=== PATIENT | female | born 1990 | race Hispanic/Latino ===

== ENCOUNTER → 2023-03-31 | Outpatient (CLI) | payer BC, SELFPAY ==
[2023-03-31 16:31] LABS: Absolute Neutrophil Count 4.2 X10^3/uL (2.0-7.7); Basophil# 0.03 X10^3/uL; Basophil% 0.4 % (0-1); Eosinophil# 0.01 X10^3/uL; Eosinophils% 0.1 % (0-5); Hematocrit 39.7 % (37-47); Hemoglobin 12.9 g/dL (12.0-15.0); Lymphocyte % 37.6 % (19-41); Mean Corp Hgb Conc 32.5 g/dL (32-36); Mean Corpuscular Hgb 29.2 pg (27.0-32.0); Mean Corpuscular Volume 89.8 fL (81-99); Mean Platelet Vol. 10.3 fl (6.2-12.0); Monocyte# 0.55 X10^3/uL; Monocyte% 7.1 % (0-10); NRBC Flagged by Analyzer 0 % (0-5); Neutrophil # 4.21 X10^3/uL (2.7-7.7); Neutrophil % 54.5 % (47-70); Platelet Count 372 K/mm3 (150-450); RBC Distribution Width CV 12.6 % (11.6-14.6); RBC Distribution Width SD 41.6 fl (35.1-43.9); Red Blood Count 4.42 M/mm3 (4.2-5.4); White Blood Count 7.7 K/mm3 (4.4-11.0)
[2023-03-31 17:03] LABS: ALB/GLOB Ratio 1.2 RATIO (0.9-2.4); AST(SGOT) 27 U/L (15-37); Alanine Aminotransfer ALT/SGPT 80 U/L (13-56); Albumin, Serum 4.3 g/dL (3.2-5.0); Alkaline Phosphatase 127 U/L (45-117); Anion Gap 2 (5-15); BUN 13 mg/dL (7-18); BUN/Creat Ratio 17.4 RATIO (10-20); Calcium,Total 9.4 mg/dL (8.5-10.1); Chloride 104 mmol/L (98-107); Cholesterol 223 mg/dL (200); Creatinine, Serum 0.75 mg/dL (0.55-1.02); EST Glomerular Filtration Rate 96 mL/min (>60); Est Glom Filt Rate - Afr Amer 116 mL/min (>60); Globulin 3.7 g/dL (2.2-4.2); Glucose 103 mg/dL (74-106); High Density Lipoprotein 74 mg/dL; Potassium 4.2 mmol/L (3.5-5.1); Sodium Level 137 mmol/L (136-145); Triglycerides 127 mg/dL; Very Low Density Lipoprotein 25 mg/dL (5-40)
== END | disposition home or self-care (01) ==
LOC: BIMLAB 14:36
PROVIDERS: PCP Internal Medicine; Visit Provider Internal Medicine
DX: Z00.00 Encounter for general adult medical examination without abnormal findings (principal); Z13.6 Encounter for screening for cardiovascular disorders; R74.8 Abnormal levels of other serum enzymes
CPT/HCPCS: 36415; 80053; 80061; 85025

== ENCOUNTER → 2024-09-20 | Outpatient (CLI) | payer BC, SELFPAY ==
[2024-09-20 17:03] LABS: Absolute Lymphocyte Count 2.22 X10^3/uL (0.83-4.51); Absolute Neutrophil Count 4.7 X10^3/uL (2.0-7.7); Basophil# 0.02 X10^3/uL; Basophil% 0.3 % (0-1); Eosinophil# 0.01 X10^3/uL; Eosinophils% 0.1 % (0-5); Hematocrit 40.5 % (37-47); Hemoglobin 13.5 g/dL (12.0-15.0); Lymphocyte # 2.22 X10^3/ul (0.83-4.51); Lymphocyte % 29.3 % (19-41); Mean Corp Hgb Conc 33.3 g/dL (32-36); Mean Corpuscular Hgb 29.5 pg (27.0-32.0); Mean Corpuscular Volume 88.4 fL (81-99); Mean Platelet Vol. 10.4 fl (6.2-12.0); Monocyte# 0.61 X10^3/uL; NRBC Flagged by Analyzer 0 % (0-5); Platelet Count 317 K/mm3 (150-450); RBC Distribution Width CV 13.2 % (11.6-14.6); RBC Distribution Width SD 42.8 fl (35.1-43.9); Red Blood Count 4.58 M/mm3 (4.2-5.4); White Blood Count 7.6 K/mm3 (4.4-11.0)
[2024-09-20 17:49] LABS: ALB/GLOB Ratio 1.6 RATIO (0.9-2.4); AST(SGOT) 72 U/L (<=31); Alanine Aminotransfer ALT/SGPT 273 U/L (<=34); Albumin, Serum 4.8 g/dL (3.5-5.0); Alkaline Phosphatase 141 U/L (35-104); Anion Gap 12 (5-15); BUN 11 mg/dL (4-19); BUN/Creat Ratio 16.4 RATIO (10-20); Calcium,Total 9.8 mg/dL (7.6-11.0); Carbon Dioxide 22.7 mmol/L (21.0-32.0); Chloride 103 mmol/L (98-108); Cholesterol 234 mg/dL (<=200); Creatinine, Serum 0.67 mg/dL (0.70-1.20); EST Glomerular Filtration Rate 118 (>60); Globulin 3.1 g/dL (2.2-4.2); Glucose 94 mg/dL (70-99); High Density Lipoprotein 79 mg/dL; Low Density Lipoprotein Calc. 131 mg/dL; Potassium 4.4 mmol/L (3.3-5.1); Protein, Total 7.9 g/dL (5.9-8.4); Sodium Level 138 mmol/L (133-145); Total Bilirubin 0.17 mg/dL (0.00-1.30); Triglycerides 119 mg/dL; Very Low Density Lipoprotein 24 mg/dL (5-40); Vitamin D,25 Hydroxy 20.3 ng/mL (30-100); cholesterol:hdl ratio screen 2.97
== END | disposition home or self-care (01) ==
LOC: BIMLAB 14:30
PROVIDERS: PCP Internal Medicine; Referring Provider Internal Medicine; Visit Provider Internal Medicine
DX: R41.840 Attention and concentration deficit (principal); R74.8 Abnormal levels of other serum enzymes; F41.9 Anxiety disorder, unspecified; F32.A Depression, unspecified; E78.2 Mixed hyperlipidemia
CPT/HCPCS: 36415; 80053; 80061; 82306; 84443; 85025

== ENCOUNTER → 2024-10-01 | Outpatient (CLI) | payer BC, SELFPAY ==
--- NOTE | 2024-10-01 07:53 | US_ITS ---
PROCEDURE: LIVER ULTRASOUND 10/01/2024 REASON FOR EXAM: ELEVATED LIVER ENZYMES COMPARISON: None FINDINGS: Liver: Grossly normal size and echotexture, measuring 13.9 cm longitudinally. Gallbladder: No stones, sludge, wall thickening or tenderness. Common bile duct: Normal measuring 5 mm. Pancreas: Visualized portions are sonographically unremarkable. Right kidney: Unremarkable measuring 10.6 x 4.0 x 5.3 cm. No hydronephrosis or shadowing stone. US/Liver IMPRESSION: UNREMARKABLE RIGHT UPPER QUADRANT ULTRASOUND. Reading Location: [id number]
[2024-10-02 08:10] LABS: HEPATITIS B SURFACE AG Negative (Negative); Hep C Antibodies Non Reactive (Non Reactive); Hepatitis A IgM Antibody Negative (Negative); Hepatitis B Core AB IgM Negative (Negative)
[2024-10-03 16:10] LABS: Anti-Mitochondrial AB <20.0 Units (0.0-20.0)
== END | disposition home or self-care (01) ==
PROVIDERS: PCP Internal Medicine; Referring Provider Internal Medicine; Visit Provider Internal Medicine
DX: R74.8 Abnormal levels of other serum enzymes (principal)
CPT/HCPCS: 36415; 76705; 80074; 83516

== ENCOUNTER → 2024-10-17 | Outpatient (CLI) | payer BC, SELFPAY ==
[2024-10-17 13:01] LABS: AST(SGOT) 35 U/L (<=31); Alanine Aminotransfer ALT/SGPT 51 U/L (<=34); Alkaline Phosphatase 94 U/L (35-104); Ferritin 33 ng/mL (22-378); Globulin 3.3 g/dL (2.2-4.2); Protein, Total 8.3 g/dL (5.9-8.4); Total Bilirubin 0.27 mg/dL (0.00-1.30)
[2024-10-17 13:41] LABS: Iron 114 ug/dL (50-170); Iron Binding Capacity,Total 374 ug/dL (250-450); Iron Binding Capacity,Unsat 260 ug/dL (228-428)
[2024-10-17 13:42] LABS: Hepatitis B Surface Antibody REAC
[2024-10-18 13:08] LABS: Anti-Centromere B Ab <0.2 AI (0.0-0.9); Anti-Chromatin <0.2 AI (0.0-0.9); Anti-Jo <0.2 AI (0.0-0.9); Anti-Scleroderma-70 AB <0.2 AI (0.0-0.9); Anti-dsDNA Ab 1 IU/mL (0-9); RNP Ab 0.7 AI (0.0-0.9); SJOGREN'S Anti-SS-A test < 0.2 AI (0.0-0.9); SJOGREN'S Anti-SS-B test < 0.2 AI (0.0-0.9); Smith Ab <0.2 AI (0.0-0.9)
[2024-10-18 17:08] LABS: Anti-Smooth Muscle ABS 6 Units (0-19); Ceruloplasmin 22.9 mg/dL (19.0-39.0); Cytoplasmic Ab (C-ANCA) <1:20 titer (Neg:<1:20); GGTP 184 IU/L (0-60); Hepatitis A AB, Total Negative (Negative); Immunoglobulin A 196 mg/dL (87-352); Perinuclear Ab (P-ANCA) <1:20 titer (Neg:<1:20); t-Transglutaminase IgA <2 U/mL (0-3)
== END | disposition home or self-care (01) ==
LOC: LAB 11:21
PROVIDERS: Nurse Practitioner Acute Care; PCP Internal Medicine; Referring Provider Internal Medicine Gastroenterology; Visit Provider Internal Medicine Gastroenterology
DX: R74.8 Abnormal levels of other serum enzymes (principal)
CPT/HCPCS: 36415; 80076; 82390; 82728; 82784; 82977; 83516; 83540; 83550; 86037; 86225; 86235; 86706; 86708

== ENCOUNTER → 2024-11-07 | Outpatient (CLI) | payer BC, SELFPAY ==
--- OUTSIDE RECORDS SUMMARY | 2024-11-07 07:24 | XMS RPT_ITS | CCD ---
Author Organization [facility] Care Team Providers Care Pharmaceutical Representative Name Role Phone Dr. Su Shaw Attending Provider Valeria POSADAS, Dr. Blue Primary Care Provider [phone] Valeria POSADAS, Dr. Blue Attending Provider Valeria POSADAS, Dr. Blue Referring Provider Peter HEALTH CARE TECHNICIAN-CDelilah Attending Provider Dr. Louie Adorno DO Attending Provider Dr. Louie Adorno DO Referring Provider Modoc, Su Primary Care Unavailable Valeria, Su Attending Unavailable Modoc, Su Referring Unavailable Modoc, Su Primary Care Unavailable Delilah Green Attending Unavailable Modoc, Su Referring Unavailable Modoc, Su Primary Care Unavailable Louie Adorno Attending Unavailable Louie Adorno Referring Unavailable Modoc, Su Primary Care Unavailable Modoc, Su Attending Unavailable Modoc, Su Referring Unavailable Modoc, Su Primary Care Unavailable Valeria, Su Attending Unavailable Valeria, Su Referring Unavailable Delilah Green Attending Unavailable Delilah Green Referring Unavailable Valeria, Su Primary Care Unavailable Medications Current Medications Medication Drug Class(es) Dates Sig (Normalized) Sig (Original) 24 hr buPROPion hydrochloride 150 mg extended release oral tablet (3 sources) Aminoketone Start: 09-20-2024 take 1 tablet by mouth once daily in the morning Bupropion Hcl (Wellbutrin Xl) 150 mg tablet extended release 24 hr Active 150 mg PO EVERY MORNING September 20, 2024 12:00am [place] (Nk) (1 source) Start: 03-31-2023 [place] (Nk) Active March 31, 2023 12:00am Problems Problem Classification Problem Date Documented Date Episodic/Chronic Administrative/social admission (1 source) Persons encountering health services in other specified circumstances; Translations: [Other reasons for seeking consultation] 03-31-2023 Episodic Anxiety disorders (4 sources) Mixed anxiety and depressive disorder; Translations: [Anxiety disorder, unspecified] Onset: 09-20-2024 09-20-2024 Chronic Disorders of lipid metabolism (4 sources) Mixed hyperlipidemia; Translations: [Mixed hyperlipidemia] Onset: 09-20-2024 09-20-2024 Chronic Immunizations and screening for infectious disease (1 source) Encounter for immunization; Translations: [Need for prophylactic vaccination and inoculation against unspecified single disease] 03-31-2023 Episodic Mood disorders (1 source) Mood disorders; Translations: [Depression, unspecified] Onset: 09-20-2024 Other liver diseases (9 sources) Elevated liver enzymes level; Translations: [Abnormal levels of other serum enzymes] 03-31-2023 Episodic Other liver diseases (3 sources) Abnormal levels of other serum enzymes; Translations: [Other nonspecific abnormal serum enzyme levels] Onset: 10-19-2024 03-31-2023 Episodic Other nervous system disorders (3 sources) Poor concentration; Translations: [Attention and concentration deficit] 09-20-2024 Chronic Other nervous system disorders (1 source) Attention and concentration deficit; Translations: [Attention and concentration deficit] Onset: 09-26-2024 Chronic Other nervous system disorders (4 sources) Hyperesthesia; Translations: [Hyperesthesia] 03-31-2023 Episodic Other screening for suspected conditions (not mental disorders or infectious disease) (4 sources) Encounter for screening for cardiovascular disorders; Translations: [Screening for other and unspecified cardiovascular conditions] 03-31-2023 Episodic Unclassified (3 sources) Z12.4 - Encounter for screening for malignant neoplasm of cervix Results Test Name Value Interpretation Reference Range Facility [facility] Panelon ANTI-DNA (DS)AB 1 IU/mL Normal 0-9 [facility] Comment on above: Result Comment: Nega tive <5 Equivocal 5 - 9 Positive >9 Performed By: #### L 500.4050, L501.9520, L100.0100, L500.4100, L506.1001 #### [facility] [address] [place], [address] ANTI-SS-A < 0.2 Normal 0.0-0.9 [facility] Comment on above: Performed By: #### L 500.4050, L501.9520, L100.0100, L500.4100, L506.1001 #### [facility] [address] [place], [address] ANTI-SS-B < 0.2 Normal 0.0-0.9 [facility] Comment on above: Performed By: #### L 500.4050, L501.9520, L100.0100, L500.4100, L506.1001 #### [facility] [address] [place], [address] ANCAon 10-18-2024 Atypical pANCA <1:20 Normal Neg:<1:20 [facility] Comment on above: Result Comment: The atypical pANCA pattern has been observed in a significant percentage of patients with ulcerative colitis, primary sclerosing cholangitis and autoimmune hepatitis. Performed By: #### L 500.4050, L501.9520, L100.0100, L500.4100, L506.1001 #### [facility] [address] [place], [address] Cytoplasmic Ab <1:20 Normal Neg:<1:20 [facility] Comment on above: Performed By: #### L 500.4050, L501.9520, L100.0100, L500.4100, L506.1001 #### [facility] [address] [place], [address] Perinuclear Ab. <1:20 Normal Neg:<1:20 [facility] Comment on above: Result Comment: The presence of positive fluorescence exhibiting P-ANCA or C-ANCA patterns alone is not specific for the diagnosis of Yoel's Granulomatosis (WG) or microscopic polyangiitis. Decisions about treatment should not be based solely on ANCA IFA results. The [employer] ANCA [employer] Consensus recommends follow up testing of positive sera with both DE- 3 and MPO-ANCA enzyme immunoassays. As many as 5% serum samples are positive only by EIA. Ref. AM J Clin Pathol 1999;111:507-513. Performed By: #### L 500.4050, L501.9520, L100.0100, L500.4100, L506.1001 #### [facility] [address] [place], [address] Anti-Smooth Muscle ABSon ANTISMOOTH MUSC 6 Units Normal 0-19 [facility] Comment on above: Result Comment: Nega tive 0 - 19 Weak positive 20 - 30 Moderate to strong positive >30 Actin Antibodies are found in 52-85% of patients with autoimmune hepatitis or chronic active hepatitis and in 22% of patients with primary biliary cirrhosis. Performed By: #### L 500.4050, L501.9520, L100.0100, L500.4100, L506.1001 #### [facility] [address] [place], [place], [id number] Ceruloplasminon 10-18-2024 CERULOPLASMIN 22.9 mg/dL Normal 19.0-39.0 [facility] Comment on above: Performed By: #### L 500.4050, L501.9520, L100.0100, L500.4100, L506.1001 #### [facility] [address] [place], [address] Hepatitis A AB, Totalon - HEPATITIS A,TOT Negative Normal Negative [facility] Comment on above: Result Comment: Comm ent: The HAV total antibody assay detects both IgG and IgM but does not differentiate between them. A negative result suggests susceptibility to infection. A positive result could be due to vaccination, previously resolved infection or active infection. Testing for HAV IgM should be performed if active HAV infection is suspected. [facility] offers profiles that will automatically reflex positive HAV total antibody results to IgM (e.g., panel #[id number] HAV Antibody w/ Rfx). Performed at: [address] [id number] Steam Drier Operator: Elton Steward PhD, Phone: [phone] Performed By: #### L 500.4050, L501.9520, L100.0100, L500.4100, L506.1001 #### [facility] [address] [place], [address] Immunoglobulin Aon 5 IMMUNOGLOB A QN 196 mg/dL Normal 87-352 [facility] Comment on above: Order Comment: N Performed By: #### L 500.4050, L501.9520, L100.0100, L500.4100, L506.1001 #### [facility] [address] [place], [address] L501.5101on 10-18-2024 GGTP 184 IU/L Abnormal 0-60 [facility] Comment on above: Performed By: #### L 500.4050, L501.9520, L100.0100, L500.4100, L506.1001 #### [facility] [address] [place], [address] t-Transglutaminase IgAon tTG IGA <2 Normal 0-3 [facility] Comment on above: Result Comment: Nega tive 0 - 3 Weak Positive 4 - 10 Positive >10 Tissue Transglutaminase (tTG) has been identified as the endomysial antigen. Studies have demonstr- ated that endomysial IgA antibodies have over 99% specificity for gluten sensitive enteropathy. Performed By: #### L 500.4050, L501.9520, L100.0100, L500.4100, L506.1001 #### [facility] [address] [place], [address] Bilirubin directOrdered By: Delilah Green on 10-17-2024 Bilirubin.direct [Mass/Vol] 0.10 mg/dL 0.00-0.3 0 [facility] Bilirubin, totalOrdered By: Delilah Green on 10-17-2024 Bilirubin [Mass/Vol] 0.27 mg/dL 0.00-1.30 [facility] Ferritinon 10-17-2024 Ferritin [Mass/Vol] 33 ng/mL Normal 22-378 [facility] Comment on above: Performed By: #### L 500.4050, L501.9520, L100.0100, L500.4100, L506.1001 #### [facility] [address] [place], [place], [address] Gamma glutamyl transferase ( GGT) measurementOrdered By: Delilah Green on 10-17-2024 Amylase [Catalytic activity/Vol] 184 U/L High 0-60 [facility] Gastroenterology Visit Repor ton 10-17-2024 Gastroenterology Visit Report [facility] [address] [place] [address] OFFICE VISIT Date of Service: 10/17/24 MR#: [id number] Acct: [id number] Name: ADAM DUNN Rep #: [id number] : 1990 Provider: GLADYS oquendo Age/Sex: 34/F [place] [facility] [place]: Signed Intake Vital Signs 09/20/24 13:33 10/17/24 10:42 Height 4 ft 11.5 in 4 ft 11.5 in Weight: 151 lb 149 lb BMI 29.9 29.5 BP 108/58 L 115/75 Blood Pressure Location Lt brachial Position Sitting Respiration 16 16 Pulse 75 80 Pulse Source Monitor Temp 98.3 F Temp Source Temporal Pulse Oximetry (%) 100 98 Oxygen Delivery Method room air room air Intake Visit Reasons: LIVER ENZYMES Chief Complaint: concentration issues 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 Has had US and it shows the liver is fine. 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 [employer] Smoking Status: Former smoker quit date: 06/01/18 pack-years: 1 Electronic Cigarette Use: not used alcohol intake: current alcohol intake frequency: a few times a week Alcohol type: beer substance use type: does not use what type of physical activity do you participate in: walking frequency: 3-4 times per week seatbelt use: always do you feel safe at home: Yes HPI HPI Chief Complaint: concentration issues Details: ADAM DUNN, is a 34 F who presents to the office today for LABS CBC: 09/20/2024 HGB 13.5, PLT 317 CMP: 09/20/2024 AST 72, ALT 273, ALP 141 TSH 09/20/2024 WNL Vitamin 20.3 (L) AMA: 10/01/2024 negative HAV IgM: negative HBVsA10/01/2024 negative HBV Core IgM: 10/01/2024 negative HCV Ab: 10/01/2024 negative ABD US: 10/01/2024 unremarkable - she reports her labs were initially elevated about 5 years ago in [place] - Dad with fatty liver disease - denies any h/o jaundice - denies any herbal supplements - EtOH - no more than 4 beers a week - denies taking any NSAIDS - tattoo - denies any h/o IVDU - denies any weight loss - weight gain - about 17lbs in the past 3 years - denies any heart or lung disease - denies any h/o autoimmune disease - denies any kidney disease - loose stools, but denies any water diarrhea - denies any urgency with BM - 2x a day - denies any bleeding - denies any stool testing - this has zehra her normal bowel patten [facility] - denies any h/o stool testing ROS Const Constitutional: Positive for fatigue and weight change (gain); No fever(s) ENT ENT: No difficulty swallowing Gastro GI: Positive for change in bowel habits; No abdominal pain, belching, bloating, change in stool character, coffee ground emesis, constipation, cramping, diarrhea, heartburn, difficulty swallowing, feeling full early, excessive flatus, incontinent of stools, Vomiting blood/hematemesis, Blood in stool, loose stools, Black,tarry stools, nausea/dyspepsia, pain with swallowing, vomiting or other Musc Musculoskeletal: No joint pain Skin Skin: No yellowing of the eye or itchy eyes Psych Psychiatric: No anxiety, No depression and Positive for inattentiveness Endo Endocrine: Positive for fatigue and weight change (gain) Aller/Imm Allergy/Immunologic: No itchy eyes Dionicio/Lymp Hematologic/Lymphatic : Positive for easy bruising; No easy bleeding Exam Const General: cooperative, healthy appearing, no acute distress and well developed Nutritional Appearance: average body habitus and well nourished Orientation: alert and oriented x3 [facility] Head: normocephalic Ears: hearing grossly normal bilaterally Mouth: moist mucous membranes Teeth and gingiva: dentition normal Eyes Conjunctivae: conjunctivae normal Sclera: sclerae normal Neck Neck: normal visual inspection, full ROM and trachea midline Resp Effort Inspection: normal respiratory effort, able (more content not included)... Normal [facility] Hepatitis B Surface Antibody on 10-17-2024 HEP B Surf Ab REAC Normal [facility] Comment on above: Result Comment: <8.5 mIU/mL: Non-Reactive 8.5<= x <11.5 mIU/mL: Indeterminate >=11.5 mIU/mL: Reactive Non Reactive: Inconsistent with immunity less than <10 mIU/mL Reactive: Consistent with immunity greater than or equal to 10 mIU/mL Performed By: #### L 500.4050, L501.9520, L100.0100, L500.4100, L506.1001 #### [facility] [address] [place], [address] Iron measurement (mass/mass) Ordered By: Delilah Green on 10-17-2024 Iron (Unsp spec) [Mass/Mass] 114 ug/dL 50-170 [facility] Iron+Iron Binding Capacityon 10-17-2024 Iron [Mass/Vol] 114 ug/dL Normal 50-170 [facility] Comment on above: Performed By: #### L 500.4050, L501.9520, L100.0100, L500.4100, L506.1001 #### [facility] [address] [place], [address] IRON SATURATION 30.0 Normal 13-59 [facility] Comment on above: Performed By: #### L 500.4050, L501.9520, L100.0100, L500.4100, L506.1001 #### [facility] [address] [place], [address] TIBC 374 ug/dL Normal 250-450 [facility] Comment on above: Performed By: #### L 500.4050, L501.9520, L100.0100, L500.4100, L506.1001 #### [facility] [address] [place], [address] UIBC 260 ug/dL Normal 228-428 [facility] Comment on above: Performed By: #### L 500.4050, L501.9520, L100.0100, L500.4100, L506.1001 #### [facility] [address] [place], [address] Laboratory - Chemistry and C hemistry - challengeOrdered By: Delilah Green on 10-17-2024 AST [Catalytic activity/Vol] 35 U/L High <32 [facility] Liver Profileon 10-17-2024 Albumin [Mass/Vol] 5.0 g/dL Normal 3.5-5.0 [facility] Comment on above: Performed By: #### L 500.4050, L501.9520, L100.0100, L500.4100, L506.1001 #### [facility] [address] [place], [address] ALK PHOS 94 U/L Normal 35-104 [facility] Comment on above: Performed By: #### L 500.4050, L501.9520, L100.0100, L500.4100, L506.1001 #### [facility] [address] [place], [address] ALT [Catalytic activity/Vol] 51 U/L High <=34 [facility] Comment on above: Performed By: #### L 500.4050, L501.9520, L100.0100, L500.4100, L506.1001 #### [facility] [address] [place], [address] AST [Catalytic activity/Vol] 35 U/L High <=31 [facility] Comment on above: Performed By: #### L 500.4050, L501.9520, L100.0100, L500.4100, L506.1001 #### [facility] [address] [place], [address] Bilirubin [Mass/Vol] 0.27 mg/dL Normal 0.00-1.30 [facility] Comment on above: Performed By: #### L 500.4050, L501.9520, L100.0100, L500.4100, L506.1001 #### [facility] [address] [place], [address] Bilirubin.direct [Mass/Vol] 0.10 mg/dL Normal 0.00-0.3 0 [facility] Comment on above: Performed By: #### L 500.4050, L501.9520, L100.0100, L500.4100, L506.1001 #### [facility] [address] [place], [address] Globulin (S) [Mass/Vol] 3.3 g/dL Normal 2.2-4.2 [facility] Comment on above: Performed By: #### L 500.4050, L501.9520, L100.0100, L500.4100, L506.1001 #### [facility] [address] [place], [address] T PROT 8.3 g/dL Normal 5.9-8.4 [facility] Comment on above: Performed By: #### L 500.4050, L501.9520, L100.0100, L500.4100, L506.1001 #### [facility] [address] [place], [address] No Panel InformationOrdered By: Delilah Green on 10-17-2024 Unsaturated Iron Binding Capacity 260 ug/dL 228-428 [facility] Serum DNA double strand anti body assay (units/volume)Ordered By: Delilah Green on 10-17-2024 DNA double strand Ab Qn (S) 1 [IU]/mL 0-9 [facility] Comment on above: Negative <5 Equivoca l 5 - 9 Positive >9 Serum Scl-70 antibody assay (units/volume)Ordered By: Delilah Green on 10-17-2024 SCL-70 extractable nuclear Ab Qn (S) <0.2 AI 0.0-0.9 [facility] Comment on above: Previous reported re sult: TNP AIEdited by: AMERICA on 10/18/24:1308 AMENDED REPORT 10/18/24 [id number] ANTISCLER previously reported as: Test not performed Serum classic neutrophil cyt oplasmic antibody assay (units/volume)Ordered By: Delilah Green on 10-17-2024 Neutrophil cytoplasmic Ab.classic Qn (S) <1:20 titer Neg:<1:20 [facility] Serum globulin measurementOr dered By: Delilah Green on 10-17-2024 Globulin (S) [Mass/Vol] 3.3 g/dL 2.2-4.2 [facility] Serum hepatitis B virus surf toni antibody detectionOrdered By: Delilah Green on 10-17-2024 HBV surface Ab Ql (S) REAC [facility] Comment on above: <8.5 mIU/mL: Non-Shyanne ctive8.5<= x <11.5 mIU/mL: Indeterminate>=11.5 mIU/mL: Reactive Non Reactive: Inconsistent with immunity less than <10 mIU/mL Reactive: Consistent with immunity greater than or equal to 10 mIU/mL Serum or plasma IgA measurem ent (mass/volume)Ordered By: Delilah Green on 10-17-2024 IgA [Mass/Vol] 196 mg/dL 87-352 [facility] Serum or plasma actin IgG an tibody assay (units/volume)Ordered By: Delilah Green on 10-17-2024 Actin IgG Qn 6 Units 0-19 [facility] Comment on above: Negative 0 - 19 Weak positive 20 - 30 Moderate to strong positive >30 Actin Antibodies are found in 52-85% of patients with autoimmune hepatitis or chronic active hepatitis and in 22% of patients with primary biliary cirrhosis. Serum or plasma alanine mcgrath otransferase (ALT) measurementOrdered By: Delilah Green on 10-17-2024 ALT [Catalytic activity/Vol] 51 U/L High <35 [facility] Serum or plasma albumin werner urement (mass/volume)Ordered By: Delilah Green on 10-17-2024 Albumin [Mass/Vol] 5.0 g/dL 3.5-5.0 [facility] Serum or plasma alkaline yanna sphatase measurementOrdered By: Delilah Green on 10-17-2024 ALP [Catalytic activity/Vol] 94 U/L 35-104 [facility] Serum or plasma ferritin dori surement (mass/volume)Ordered By: Delilah Green on 10-17-2024 Ferritin [Mass/Vol] 33 ng/mL 22-378 [facility] Serum or plasma iron saturat ion measurement (mass fraction)Ordered By: Delilah Green on 10-17-2024 Iron saturation [Mass fraction] 30.0 % 13-59 [facility] Serum perinuclear neutrophil cytoplasmic antibody titer by immunofluorescenceOrdered By: Delilah Green on 10-17-2024 Neutrophil cytoplasmic Ab.perinuclear IF (S) [Titer] <1:20 titer Neg:<1:20 [facility] Comment on above: The presence of posi tive fluorescence exhibiting P-ANCA orC-ANCA patterns alone is not specific for the diagnosis ofWegener's Granulomatosis (WG) or microscopic polyangiitis.Decisions about treatment should not be based solely onANCA IFA results. The International ANCA Group Consensusrecommends follow up testing of positive sera with both DE-3 and MPO-ANCA enzyme immunoassays. As many as 5% serumsamples are positive only by EIA. Ref. AM J Clin [id number];111:507-513. Serum tissue transglutaminas e (tTG) IgA antibody assay (units/volume)Ordered By: Delilah Green on 10-17-2024 tTG IgA Qn (S) <2 U/mL 0-3 [facility] Comment on above: Negative 0 - 3 Weak Positive 4 - 10 Positive >10 Tissue Transglutaminase (tTG) has been identified as the endomysial antigen. Studies have demonstr- ated that endomysial IgA antibodies have over 99% specificity for gluten sensitive enteropathy. Total proteinOrdered By: Ange Green on 10-17-2024 Protein [Mass/Vol] 8.3 g/dL 5.9-8.4 [facility] Anti-Mitochondrial ABon 05-0 ANTIMITOCHON AB <20.0 Normal 0.0-20.0 [facility] Comment on above: Result Comment: Nega tive 0.0 - 20.0 Equivocal 20.1 - 24.9 Positive >24.9 Mitochondrial (M2) Antibodies are found in 90-96% of patients with primary biliary cirrhosis. Performed at: [address] [id number] Steam Drier Operator: Elton Steward PhD, Phone: [phone] Performed By: #### L 800.1280, L3000.0375 #### [facility] [address] [place], [place], [address] Hepatitis Panel Acuteon 05- COMMENT Comment Normal . [facility] Comment on above: Result Comment: Not infected with HCV unless early or acute infection is suspected (which may be delayed in an immunocompromised individual), or other evidence exists to indicate HCV infection. Performed at: [facility] [id number] Steam Drier Operator: Elton Steward PhD, Phone: [phone] Performed By: #### L 800.1280, L3000.0375 #### [facility] [address] [facility] [place], [address] HEP B CORE,IgM Negative Normal Negative [facility] Comment on above: Performed By: #### L 800.1280, L3000.0375 #### [facility] [place] [facility] [facility] [place], [address] HEP B SURF AG Negative Normal Negative [facility] Comment on above: Performed By: #### L 800.1280, L3000.0375 #### [facility] Laboratory [address] [facility] [place], [address] HEP C VIRUS AB Non-Reactive Normal Non Reactive [facility] Comment on above: Performed By: #### L 800.1280, L3000.0375 #### [facility] [address] [place], [address] HEPATITIS A-IgM Negative Normal Negative [facility] Comment on above: Result Comment: A ne gative anti-HAV IgM result suggests no recent or current HAV infection. Performed By: #### L 800.1280, L3000.0375 #### [facility] [address] [place], [address] Liveron 10-01-2024 Liver [facility] [address] [place], [place] [address] Liver MR#: [id number] Acct: [id number] Name: ADAM DUNN Rep #: [id number] : 1990 F 34 From: Wang Cummins MD PCP: Dr. Su Shaw MD Status: REG CLI Study: Liver Date of Exam: 10/01/24 Exam# [id number] Ordering Dr: Su Shaw MD PROCEDURE: LIVER ULTRASOUND 10/01/2024 REASON FOR EXAM: ELEVATED LIVER ENZYMES COMPARISON: None FINDINGS: Liver: Grossly normal size and echotexture, measuring 13.9 cm longitudinally. Gallbladder: No stones, sludge, wall thickening or tenderness. Common bile duct: Normal measuring 5 mm. Pancreas: Visualized portions are sonographically unremarkable. Right kidney: Unremarkable measuring 10.6 x 4.0 x 5.3 cm. No hydronephrosis or shadowing stone. US/Liver IMPRESSION: UNREMARKABLE RIGHT UPPER QUADRANT ULTRASOUND. Reading Location: [facility] CC: Dr. Su Shaw MD Psychotherapist: Signed Normal [facility] No Panel InformationOrdered By: Su Shaw on 10-01-2024 Hepatitis C Antibody Comment Comment . [facility] Comment on above: Not infected with HC V unless early or acute infection issuspected (which may be delayed in an immunocompromisedindividual), or other evidence exists to indicate HCVinfection.Performed at: [facility] [place] [address] [id number] Director: Elton Steward PhD, Phone: [phone] Serum mitochondria antibody detectionOrdered By: Su Shaw on 10-01-2024 Mitochondria Ab Ql (S) <20.0 Units 0.0-20.0 [facility] Comment on above: Negative 0.0 - 20.0 Equivocal 20.1 - 24.9 Positive >24.9Mitochondrial (M2) Antibodies are found in 90-96% ofpatients with primary biliary cirrhosis.Performed at: [facility] [place] [address] [id number] Director: Elton Steward PhD, Phone: [phone] Serum or plasma hepatitis B virus surface antigen detection by immunoassayOrdered By: Su Shaw on 10-01-2024 HBV surface Ag IA Ql Negative Negative [facility] Absolute lymphocyte countOrd ered By: Su Sahw on 09-20-2024 Lymphocytes Auto (Unsp spec) [#/Vol] 2.22 10*3/uL 0.83-4.51 [facility] Absolute neutrophil countOrd ered By: Su Shaw on 09-20-2024 Neutrophils (Bld) [#/Vol] 4.7 10*3/uL 2.0-7.7 [facility] Anion gap in Serum or Plasma Ordered By: Su Shaw on 09-20-2024 Anion gap [Moles/Vol] 12 mmol/L 5- [facility] Automated lymphocyte count a s percentage of total leukocytesOrdered By: Su Shaw on 09-20-2024 Lymphocytes/100 WBC Auto (Unsp spec) 29.3 % 19- [facility] BUN/creatinine ratioOrdered By: Su Shaw on 09-20-2024 Urea nitrogen/Creatinine [Mass ratio] 16.4 mg/mg 10- [facility] Basophil percentageOrdered B y: Su Shaw on 09-20-2024 Basophils/100 WBC (Bld) 0.3 % 0-1 [facility] Bilirubin, totalOrdered By: Su Shaw on 09-20-2024 Bilirubin [Mass/Vol] 0.17 mg/dL 0.00-1.30 [facility] CBC W/Diff, Automatedon 08-31 Absolute Lymph 2.22 X10 3/uL Normal 0.83-4.51 [facility] Comment on above: Performed By: #### L 500.4050, L501.9520, L100.0100, L500.4100, L506.1001 #### [facility] [address] [facility] [place], [place], [id number] Absolute Neut 4.7 X10 3/uL Normal 2.0-7.7 [facility] Comment on above: Performed By: #### L 500.4050, L501.9520, L100.0100, L500.4100, L506.1001 #### [facility] [address] [place], [address] Basophils/100 WBC (Bld) 0.3 % Normal 0-1 [facility] Comment on above: Performed By: #### L 500.4050, L501.9520, L100.0100, L500.4100, L506.1001 #### [facility] [address] [place], [address] Eosinophils/100 WBC (Bld) 0.1 % Normal 0-5 [facility] Comment on above: Performed By: #### L 500.4050, L501.9520, L100.0100, L500.4100, L506.1001 #### [facility] [address] [place], [address] Erythrocyte distribution width (RBC) [Ratio] 13.2 % Normal 11.6-14.6 [facility] Comment on above: Performed By: #### L 500.4050, L501.9520, L100.0100, L500.4100, L506.1001 #### [facility] [address] [place], [address] Hematocrit (Bld) [Volume fraction] 40.5 % Normal 37-47 [facility] Comment on above: Performed By: #### L 500.4050, L501.9520, L100.0100, L500.4100, L506.1001 #### [facility] [address] [place], [address] Hemoglobin (Bld) [Mass/Vol] 13.5 g/dL Normal 12.0-15. 0 [facility] Comment on above: Performed By: #### L 500.4050, L501.9520, L100.0100, L500.4100, L506.1001 #### [facility] [address] [place], [address] IG% 0.300 Normal 0.0-0.9 [facility] Comment on above: Result Comment: IG% - Immature Granulocytes (promyelocytes, myelocytes and metamyelocytes) > 1% indicates that a LEFT SHIFT is Present. Performed By: #### L 500.4050, L501.9520, L100.0100, L500.4100, L506.1001 #### [facility] [address] [place], [address] Lymphocytes/100 WBC (Bld) 29.3 % Normal 19-41 [facility] Comment on above: Performed By: #### L 500.4050, L501.9520, L100.0100, L500.4100, L506.1001 #### [facility] [address] [place], [address] MCH (RBC) [Entitic mass] 29.5 pg Normal 27.0-32.0 [facility] Comment on above: Performed By: #### L 500.4050, L501.9520, L100.0100, L500.4100, L506.1001 #### [facility] [address] [place], [address] MCHC (RBC) [Mass/Vol] 33.3 g/dL Normal 32-36 [facility] Comment on above: Performed By: #### L 500.4050, L501.9520, L100.0100, L500.4100, L506.1001 #### [facility] [address] [place], [address] MCV (RBC) [Entitic vol] 88.4 fL Normal 81-99 [facility] Comment on above: Performed By: #### L 500.4050, L501.9520, L100.0100, L500.4100, L506.1001 #### [facility] [address] [place], [address] Monocytes/100 WBC (Bld) 8.0 % Normal 0-10 [facility] Comment on above: Performed By: #### L 500.4050, L501.9520, L100.0100, L500.4100, L506.1001 #### [facility] [address] [place], [address] Neutrophils/100 WBC (Bld) 62.0 % Normal 47-70 [facility] Comment on above: Performed By: #### L 500.4050, L501.9520, L100.0100, L500.4100, L506.1001 #### [facility] [address] [place], [address] Nucleated RBC (Bld) [#/Vol] 0 10*3/uL Normal 0-5 [facility] Comment on above: Performed By: #### L 500.4050, L501.9520, L100.0100, L500.4100, L506.1001 #### [facility] [address] [place], [address] Platelet mean volume (Bld) [Entitic vol] 10.4 fL Normal 6.2-12.0 [facility] Comment on above: Performed By: #### L 500.4050, L501.9520, L100.0100, L500.4100, L506.1001 #### [facility] Laboratory [address] [place], [address] Platelets (Bld) [#/Vol] 317 10*3/uL Normal 150-450 [facility] Comment on above: Performed By: #### L 500.4050, L501.9520, L100.0100, L500.4100, L506.1001 #### [facility] [address] [place], [address] RBC (Bld) [#/Vol] 4.58 10*6/uL Normal 4.2-5.4 [facility] Comment on above: Performed By: #### L 500.4050, L501.9520, L100.0100, L500.4100, L506.1001 #### [facility] [address] [place], [address] RDW SD 42.8 fl Normal 35.1-43.9 [facility] Comment on above: Performed By: #### L 500.4050, L501.9520, L100.0100, L500.4100, L506.1001 #### [facility] [address] [place], [address] WBC (Bld) [#/Vol] 7.6 10*3/uL Normal 4.4-11.0 [facility] Comment on above: Performed By: #### L 500.4050, L501.9520, L100.0100, L500.4100, L506.1001 #### [facility] [address] [place], [address] Calculated very low density lipoprotein (VLDL) cholesterol measurementOrdered By: Su Shaw on 09-20-2024 Calculated very low density lipoprotein (VLDL) cholesterol measurement 24 mg/dL 5-40 [facility] Carbon dioxide, total [Moles /volume] in Central venous bloodOrdered By: Su Shaw on 09-20-2024 CO2 [Moles/Vol] 22.7 mmol/L 21.0-32.0 [facility] Chloride assayOrdered By: Eugenio Shaw on 09-20-2024 Chloride [Moles/Vol] 103 mmol/L 98-108 [facility] Comprehensive Metabolic Prof ilon 09-20-2024 Albumin [Mass/Vol] 4.8 g/dL Normal 3.5-5.0 [facility] Comment on above: Performed By: #### L 500.4050, L501.9520, L100.0100, L500.4100, L506.1001 #### [facility] Laboratory [address] [place], [address] Albumin/Globulin [Mass ratio] 1.6 {ratio} Normal 0.9-2.4 [facility] Comment on above: Performed By: #### L 500.4050, L501.9520, L100.0100, L500.4100, L506.1001 #### [facility] [address] [place], [address] ALK PHOS 141 U/L High 35-104 [facility] Comment on above: Performed By: #### L 500.4050, L501.9520, L100.0100, L500.4100, L506.1001 #### [facility] Laboratory [address] [place], [address] ALT [Catalytic activity/Vol] 273 U/L High <=34 [facility] Comment on above: Performed By: #### L 500.4050, L501.9520, L100.0100, L500.4100, L506.1001 #### [facility] [address] [place], [address] AST [Catalytic activity/Vol] 72 U/L High <=31 [facility] Comment on above: Performed By: #### L 500.4050, L501.9520, L100.0100, L500.4100, L506.1001 #### [facility] [address] [place], [address] Bilirubin [Mass/Vol] 0.17 mg/dL Normal 0.00-1.30 [facility] Comment on above: Performed By: #### L 500.4050, L501.9520, L100.0100, L500.4100, L506.1001 #### [facility] [address] [place], [address] BUN/CRE 16.4 RATIO Normal 10-20 [facility] Comment on above: Performed By: #### L 500.4050, L501.9520, L100.0100, L500.4100, L506.1001 #### [facility] Laboratory [address] [place], [address] Calcium [Mass/Vol] 9.8 mg/dL Normal 7.6-11.0 [facility] Comment on above: Performed By: #### L 500.4050, L501.9520, L100.0100, L500.4100, L506.1001 #### [facility] [address] [place], [address] Chloride [Moles/Vol] 103 mmol/L Normal 98-108 [facility] Comment on above: Performed By: #### L 500.4050, L501.9520, L100.0100, L500.4100, L506.1001 #### [facility] [address] [place], [address] CO2 [Moles/Vol] 22.7 mmol/L Normal 21.0-32.0 [facility] Comment on above: Performed By: #### L 500.4050, L501.9520, L100.0100, L500.4100, L506.1001 #### [facility] Laboratory [address] [place], [address] Creatinine [Mass/Vol] 0.67 mg/dL Low 0.70-1.20 [facility] Comment on above: Performed By: #### L 500.4050, L501.9520, L100.0100, L500.4100, L506.1001 #### [facility] [address] [place], [address] GAP 12 Normal 5-15 [facility] Comment on above: Performed By: #### L 500.4050, L501.9520, L100.0100, L500.4100, L506.1001 #### [facility] [address] [place], [address] GFR/1.73 sq M.predicted among non-blacks MDRD (S/P/Bld) [Vol rate/Area] 118 mL/min/{1.73_m2} Normal >60 [facility] Comment on above: Result Comment: mL/m in/1.73m2 CKD-EPI Creatinine Equation (2020) Performed By: #### L 500.4050, L501.9520, L100.0100, L500.4100, L506.1001 #### [facility] [address] [place], [address] Globulin (S) [Mass/Vol] 3.1 g/dL Normal 2.2-4.2 [facility] Comment on above: Performed By: #### L 500.4050, L501.9520, L100.0100, L500.4100, L506.1001 #### [facility] [address] [place], [address] Glucose [Mass/Vol] 94 mg/dL Normal 70-99 [facility] Comment on above: Performed By: #### L 500.4050, L501.9520, L100.0100, L500.4100, L506.1001 #### [facility] [address] [place], [address] Potassium [Moles/Vol] 4.4 mmol/L Normal 3.3-5.1 [facility] Comment on above: Performed By: #### L 500.4050, L501.9520, L100.0100, L500.4100, L506.1001 #### [facility] [address] [place], [address] Sodium [Moles/Vol] 138 mmol/L Normal 133-145 [facility] Comment on above: Performed By: #### L 500.4050, L501.9520, L100.0100, L500.4100, L506.1001 #### [facility] [address] [place], [address] T PROT 7.9 g/dL Normal 5.9-8.4 [facility] Comment on above: Performed By: #### L 500.4050, L501.9520, L100.0100, L500.4100, L506.1001 #### [facility] [address] [place], [address] Urea nitrogen [Mass/Vol] 11 mg/dL Normal 4-19 [facility] Comment on above: Performed By: #### L 500.4050, L501.9520, L100.0100, L500.4100, L506.1001 #### [facility] [address] [place], [address] Eosinophil percentageOrdered By: Su Shaw on 09-20-2024 Eosinophils/100 WBC (Bld) 0.1 % 0-5 [facility] Erythrocyte distribution wid th ratioOrdered By: Su Shaw on 09-20-2024 Erythrocyte distribution width (RBC) [Ratio] 13.2 % 11.6-14.6 [facility] Erythrocyte distribution wid th standard deviationOrdered By: Su Shaw on 09-20-2024 Erythrocyte distribution width (RBC) [Ratio] 42.8 fl 35.1-43.9 [facility] Glomerular filtration rate ( GFR) estimation/1.73 sq m using serum, plasma, or whole bOrdered By: Su Shaw on 09-20-2024 GFR/1.73 sq M.predicted among non-blacks MDRD (S/P/Bld) [Vol rate/Area] 118 mL/min/{1.73_m2} >60 [facility] Comment on above: mL/min/1.73m2 CKD-EP I Creatinine Equation (2020) Hematocrit Auto (Bld) [Volum e fraction]Ordered By: Su Shaw on 09-20-2024 Hematocrit (Bld) [Volume fraction] 40.5 % 37-47 [facility] Hemoglobin measurementOrdere d By: Su Shaw on 09-20-2024 Hemoglobin (Bld) [Mass/Vol] 13.5 g/dL 12.0-15. 0 [facility] Immature granulocytes/100 WB C Auto (Bld)Ordered By: Su Shaw on 09-20-2024 Immature granulocytes/100 WBC (Bld) 0.300 % 0.0-0.9 [facility] Comment on above: IG% - Immature Granu locytes (promyelocytes, myelocytes and metamyelocytes) > 1% indicates that a LEFT SHIFT is Present. LDL calc ser/plasOrdered By: Su Shaw on 09-20-2024 Cholesterol in LDL [Mass/Vol] 131 mg/dL [facility] Comment on above: Pzgzunhvdb=010-382 m g/dL & Higher Kjwh=856 mg/dL or greater Laboratory - Chemistry and C hemistry - challengeOrdered By: Su Shaw on 09-20-2024 AST [Catalytic activity/Vol] 72 U/L High <32 [facility] Lipid Profileon 09-20-2024 CHOL:HDL 2.97 Normal [facility] Comment on above: Performed By: #### L 500.4050, L501.9520, L100.0100, L500.4100, L506.1001 #### [facility] [address] [place], [address] Cholesterol [Mass/Vol] 234 mg/dL High <=200 [facility] Comment on above: Result Comment: Chol esterol level, Desirable <200 mg/dL Borderline high cholesterol 200-239 mg/dL High cholesterol >=240 mg/dL Recommendations of the NCEP Adult Treatment Panel for the following risk-cutoff thresholds for the [place] population. Performed By: #### L 500.4050, L501.9520, L100.0100, L500.4100, L506.1001 #### [facility] [address] [place], [address] Cholesterol in HDL [Mass/Vol] 79 mg/dL Normal [facility] Comment on above: Result Comment: Maranda onal Cholesterol Education Program (NCEP) guidelines: <40 mg/dL: Low HDL-cholesterol (major risk factor for CHD) >= 60 mg/dL: High HDL-cholesterol (negative risk factor for CHD) HDL-cholesterol is affected by a number of factors, e.g. smoking, exercise, hormones, sex and age. Performed By: #### L 500.4050, L501.9520, L100.0100, L500.4100, L506.1001 #### [facility] [address] [place], [address] Cholesterol in LDL [Mass/Vol] 131 mg/dL Normal [facility] Comment on above: Result Comment: Bord yszrdg=915-449 mg/dL Higher Jpiv=608 mg/dL or greater Performed By: #### L 500.4050, L501.9520, L100.0100, L500.4100, L506.1001 #### [facility] [address] [place], [address] Cholesterol in VLDL [Mass/Vol] 24 mg/dL Normal 5-40 [facility] Comment on above: Performed By: #### L 500.4050, L501.9520, L100.0100, L500.4100, L506.1001 #### [facility] [address] [place], [address] Triglyceride [Mass/Vol] 119 mg/dL Normal [facility] Comment on above: Result Comment: The drugs N-Acetylcysteine and Metamizole may falsely depress this assay. Normal range: <150 mg/dL Borderline High: 150-199 mg/dL High: 200-499 mg/dL Very High: >500 mg/dL Performed By: #### L 500.4050, L501.9520, L100.0100, L500.4100, L506.1001 #### [facility] [address] [place], [address] MCV (mean corpuscular volume ) determinationOrdered By: Su Shaw on 09-20-2024 MCV (RBC) [Entitic vol] 88.4 fL 81-99 [facility] Mean corpuscular hemoglobin (MCH) determinationOrdered By: Su Shaw on 09-20-2024 MCH (RBC) [Entitic mass] 29.5 pg 27.0-32.0 [facility] Mean corpuscular hemoglobin concentration (MCHC) determinationOrdered By: Su Shaw on 09-20-2024 MCHC (RBC) [Mass/Vol] 33.3 g/dL 32-36 [facility] Mean platelet volume determi nationOrdered By: Su Shaw on 09-20-2024 Platelet mean volume (Bld) [Entitic vol] 10.4 fL 6.2-12.0 [facility] Monocyte percentageOrdered B y: Su Shaw on 09-20-2024 Monocytes/100 WBC (Bld) 8.0 % 0-10 [facility] Neutrophil percentageOrdered By: Su Shaw on 09-20-2024 Neutrophils/100 WBC (Bld) 62.0 % 47-70 [facility] Nucleated red blood cell per centageOrdered By: Su Shaw on 09-20-2024 Nucleated RBC/100 WBC (Bld) [Ratio] 0 % 0-5 [facility] Platelet countOrdered By: Eugenio Shaw on 09-20-2024 Platelets (Bld) [#/Vol] 317 10*3/uL 150-450 [facility] Potassium measurement (mass/ volume)Ordered By: Su Shaw on 09-20-2024 Potassium (Unsp spec) [Mass/Vol] 4.4 mmol/L 3.3-5.1 [facility] RBC Auto (Bld) [#/Vol]Ordere d By: Su Shaw on 09-20-2024 RBC (Bld) [#/Vol] 4.58 10*6/uL 4.2-5.4 [facility] Screening total cholesterol/ high density lipoprotein (HDL) cholesterol ratioOrdered By: Su Shaw on 09-20-2024 Cholesterol.total/Cholester ol in HDL [Mass ratio] 2.97 {ratio} [facility] Serum creatinine measurement (mass/volume)Ordered By: Su Shaw on 09-20-2024 Creatinine [Mass/Vol] 0.67 mg/dL Low 0.70-1.20 [facility] Serum globulin measurementOr dered By: Su Shaw on 09-20-2024 Globulin (S) [Mass/Vol] 3.1 g/dL 2.2-4.2 [facility] Serum glucose measurement (m ass/volume)Ordered By: Su Shaw on 09-20-2024 Glucose [Mass/Vol] 94 mg/dL 70-99 [facility] Serum or plasma alanine mcgrath otransferase (ALT) measurementOrdered By: Su Shaw on 09-20-2024 ALT [Catalytic activity/Vol] 273 U/L High <35 [facility] Serum or plasma albumin werner urement (mass/volume)Ordered By: Su Shaw on 09-20-2024 Albumin [Mass/Vol] 4.8 g/dL 3.5-5.0 [facility] Serum or plasma albumin/glob ulin mass ratioOrdered By: Su Shaw on 09-20-2024 Albumin/Globulin [Mass ratio] 1.6 {ratio} 0.9-2.4 [facility] Serum or plasma alkaline yanna sphatase measurementOrdered By: Su Shaw on 09-20-2024 ALP [Catalytic activity/Vol] 141 U/L High 35-104 [facility] Serum or plasma calcium werner urement (mass/volume)Ordered By: Su Shaw on 09-20-2024 Calcium [Mass/Vol] 9.8 mg/dL 7.6-11.0 [facility] Serum or plasma cholesterol in HDL measurement (mass/volume)Ordered By: Su Shaw on 09-20-2024 Cholesterol in HDL [Mass/Vol] 79 mg/dL >40 [facility] Comment on above: National Cholesterol Education Program (NCEP) guidelines:<40 mg/dL: Low HDL-cholesterol (major risk factor for CHD)>= 60 mg/dL: High HDL-cholesterol (negative risk factor for CHD)HDL-cholesterol is affected by a number of factors, e.g. smoking, exercise, hormones, sex and age. Serum or plasma cholesterol measurement (mass/volume)Ordered By: Su Shaw on 09-20-2024 Cholesterol [Mass/Vol] 234 mg/dL High <201 [facility] Comment on above: Cholesterol level, D esirable <200 mg/dLBorderline high cholesterol 200-239 mg/dLHigh cholesterol >=240 mg/dLRecommendations of the NCEP Adult Treatment Panel for the following risk-cutoff thresholds for the [place] population. Serum or plasma urea nitroge n measurement (mass/volume)Ordered By: Su Shaw on 09-20-2024 Urea nitrogen [Mass/Vol] 11 mg/dL 4-19 [facility] Sodium levelOrdered By: Jennifer Shaw on 09-20-2024 Sodium [Moles/Vol] 138 mmol/L 133-145 [facility] TSH DL <= 0.005 mIU/L QnOrde red By: Su Shaw on 09-20-2024 TSH Qn 1.550 uIU/mL 0.300-4.200 [facility] Thyroid Stim Hormone (TSH)on 09-20-2024 TSH 1.550 uIU/mL Normal 0.300-4.200 [facility] Comment on above: Performed By: #### L 500.4050, L501.9520, L100.0100, L500.4100, L506.1001 #### [facility] Laboratory [address] [place], [place], [id number] Total proteinOrdered By: George Shaw on 09-20-2024 Protein [Mass/Vol] 7.9 g/dL 5.9-8.4 [facility] Triglycerides measurementOrd ered By: Su Shaw on 09-20-2024 Triglyceride [Mass/Vol] 119 mg/dL <199 [facility] Comment on above: The drugs N-Acetylcy steine and Metamizole may falsely depress this assay. Normal range: <150 mg/dLBorderline High: 150-199 mg/dLHigh: 200-499 mg/dLVery High: >500 mg/dL Vitamin D,25 Hydroxyon 09-20 Vitamin D 25-OH 20.3 ng/mL Low 30-100 [facility] Comment on above: Result Comment: Kim min D Status Deficiency: <20 ng/mL (50nmol/L) Insufficiency: 20-30 ng/mL (50-75 nmol/L) Sufficiency: 30-100 ng/mL (75-250 nmol/L) Toxicity: >100 ng/mL (>250 nmol/L) Performed By: #### L 500.4050, L501.9520, L100.0100, L500.4100, L506.1001 #### [facility] [address] [place], [address] White blood cell (WBC) count Ordered By: Su Shaw on 09-20-2024 WBC (Bld) [#/Vol] 7.6 10*3/uL 4.4-11.0 [facility] Internal Medicine Office Vis iton 09-19-2024 Internal Medicine Office Visit [facility] [address] [place] [address] [place] [address] OFFICE VISIT Date of Service: 09/20/24 MR#: [id number] Acct: [id number] Name: ADAM DUNN Rep #: [id number] : 1990 Provider: Dr. 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 Su Shaw MD) household members: spouse current occupational status: employed current occupation: [employer] Smoking Status: Former smoker quit date: 06/01/18 pack-years: 1 Electronic Cigarette Use: not used alcohol intake: current alcohol intake frequency: a few times a week Alcohol type: beer substance use type: does not use what type of physical activity do you participate in: walking frequency: 3-4 times per week seatbelt use: always do you feel safe at home: Yes Questionnaire PQH-9 BMS Over the last 2 weeks, how often have you been bothered by any of the following problems? 1. Little interest or pleasure in doing things: several days 2. Feeling down, depressed, or hopeless: several days 3. Trouble falling or staying asleep, or sleeping too much: several days 4. Feeling tired or having little energy: several days 5. Poor appetite or overeating: not at all 6. Feeling bad about yourself - or that you are a failure or have let yourself and your family down: several days 7. Trouble concentrating on things, such as reading the newspaper or watching television: more than half the days 8. Moving or speaking so slowly that other people could have noticed? - Or the opposite - being so fidgety or restless that you have been moving around a lot more than usual: several days 9. Thoughts that you would be better off or of hurting yourself in some way: not at all Total score: 8 If you checked off any problems, how difficult have these problems made it for you to do your work, take care of things at home, or get along with other people?: somewhat difficult Source: Developed by Drs. Tyler Lo, Jessenia Campos, Tera Bustamante and colleagues, with an educational tg from [employer]. DAWNA-7 BMS DAWNA-7 Feeling nervous, anxious, or on edge: 1 = Several days Not being able to stop or control worryin = Several days Worrying too much about different things: 1 = Several days Trouble relaxin = Several days Being so restless that it is hard to sit still: 1 = Several days Becoming easily annoyed or irritable: 1 = Several days Feeling afraid as if something awful might happen: 1 = Several days Total DAWNA-7 score (0-4 normal; 5-9 mild; 10-14 moderate; 15-21 severe): 7 Source: Developed by Drs. Tyler Lo, Jessenia Campos, Tera Bustamante and colleagues, with an educational tg from [employer]. HPI HPI Chief Complaint: concentration issues Details: ADAM DUNN, is a 34 F who presents to the office today for a follow up. She hasn't been seen since 03/2023. She is due for some routine blood work. She reports her last pap smear was at least 3 years ago. She isn't due for any immunizations. She doesn't smoke and doesn't take any medications. She reports she is trying to eat healthy and staying active. She reports she is starting to swim for exercise. The patient has concerns about difficulty concentrating. She reports that over the last month, her job requirements changed. She reports she got a new project which has been causing increasing stress. She reports she feels as thought it is causing her difficulty concentrating. She reports thinking about all the things she needs to complete cause anxiety. She reports she feels disor (more content not included)... Normal [facility] Absolute lymphocyte countOrd ered By: Su Shaw on 03-31-2023 Lymphocytes Auto (Unsp spec) [#/Vol] 2.90 10*3/uL 0.83-4.51 [facility] Basophil percentageOrdered B y: Su Shaw on 03-31-2023 Basophils/100 WBC (Bld) 0.4 % 0-1 [facility] Bilirubin [Mass/Vol] 0.30 mg/dL 0.20-1.00 [facility] Comment on above: For patients on eltr ombopag therapy, use of Dimension [place] TBIL is not recommended. Chloride [Moles/Vol] 104 mmol/L 98-107 [facility] Cholesterol [Mass/Vol] 223 mg/dL <200 [facility] Comment on above: <200 mg/dL Desirable 200-240 mg/dL Borderline >240 mg/dL High Risk Eosinophils/100 WBC (Bld) 0.1 % 0-5 [facility] Glucose [Mass/Vol] 103 mg/dL 74-106 [facility] Comment on above: Fasting Glucose resu lt from 100 to 125 mg/dL suggests IMPAIRED HOMEOSTASIS per A.D.A. criteria. Neutrophils (Bld) [#/Vol] 4.2 10*3/uL 2.0-7.7 [facility] Neutrophils/100 WBC (Bld) 54.5 % 47-70 [facility] Potassium [Moles/Vol] 4.2 mmol/L 3.5-5.1 [facility] Protein [Mass/Vol] 8.0 g/dL 6.4-8.2 [facility] Sodium [Moles/Vol] 137 mmol/L 136-145 [facility] Triglyceride [Mass/Vol] 127 mg/dL <199 [facility] Comment on above: The drugs N-Acetylcy steine and Metamizole may falsely depress this assay.Serum Triglycerides Reference Interval Normal <150 mg/dL Borderline high 150 - 199 mg/dL High 200 - 499 mg/dL Very High > or = 500 mg/dL WBC (Bld) [#/Vol] 7.7 10*3/uL 4.4-11.0 [facility] Blood erythrocytes count (nu mber/volume)Ordered By: Su Shaw on 03-31-2023 RBC (Bld) [#/Vol] 4.42 10*6/uL 4.2-5.4 [facility] Blood hemoglobin measurement (mass/volume)Ordered By: Su Shaw on 03-31-2023 Hemoglobin (Bld) [Mass/Vol] 12.9 g/dL 12.0-15. 0 [facility] Blood lymphocytes/100 leukoc ytesOrdered By: Su Shaw on 03-31-2023 Lymphocytes/100 WBC (Bld) 37.6 % 19-41 [facility] Blood monocytes/100 leukocyt esOrdered By: Su Shaw on 03-31-2023 Monocytes/100 WBC (Bld) 7.1 % 0-10 [facility] Blood platelet mean volumeOr dered By: Su Shaw on 03-31-2023 Platelet mean volume (Bld) [Entitic vol] 10.3 fL 6.2-12.0 [facility] Determination of erythrocyte mean corpuscular volume (MCV)Ordered By: Su Shaw on 03-31-2023 MCV (RBC) [Entitic vol] 89.8 fL 81-99 [facility] Hematocrit Auto (Bld) [Volum e fraction]Ordered By: Su Shaw on 03-31-2023 Hematocrit (Bld) [Volume fraction] 39.7 % 37-47 [facility] Laboratory - Chemistry and C hemistry - challengeOrdered By: Su Shaw on 03-31-2023 ALP [Catalytic activity/Vol] 127 U/L 45-117 [facility] ALT [Catalytic activity/Vol] 80 U/L 13-56 [facility] CO2 [Moles/Vol] 31.0 mmol/L 21.0-32.0 [facility] Globulin (S) [Mass/Vol] 3.7 g/dL 2.2-4.2 [facility] Urea nitrogen/Creatinine [Mass ratio] 17.4 mg/mg 10-20 [facility] Laboratory - Hematology and Cell countsOrdered By: Su Shaw on 03-31-2023 Erythrocyte distribution width (RBC) [Entitic vol] 41.6 fL 35.1-43.9 [facility] Erythrocyte distribution width (RBC) [Ratio] 12.6 % 11.6-14.6 [facility] Immature granulocytes/100 WBC (Bld) 0.300 % 0.0-0.9 [facility] Comment on above: IG% - Immature Granu locytes (promyelocytes, myelocytes and metamyelocytes) > 1% indicates that a LEFT SHIFT is Present. MCH (RBC) [Entitic mass] 29.2 pg 27.0-32.0 [facility] Nucleated RBC/100 WBC (Bld) [Ratio] 0 % 0-5 [facility] MCHC Auto (RBC) [Mass/Vol]Or dered By: Su Shaw on 03-31-2023 MCHC (RBC) [Mass/Vol] 32.5 g/dL 32-36 [facility] No Panel InformationOrdered By: Su Shaw on 03-31-2023 Estimated GFR (MDRD) Amer 116 mL/min >60 [facility] Comment on above: GFR Calc Estimated GFR (MDRD) Non-Af Amer 96 mL/min >60 [facility] Comment on above: Non- GFR Calc Platelets bldOrdered By: George Shaw on 03-31-2023 Platelets (Bld) [#/Vol] 372 10*3/uL 150-450 [facility] Serum or plasma albumin werner urement (mass/volume)Ordered By: Su Shaw on 03-31-2023 Albumin [Mass/Vol] 4.3 g/dL 3.2-5.0 [facility] Serum or plasma albumin/glob ulin mass ratioOrdered By: Su Shaw on 03-31-2023 Albumin/Globulin [Mass ratio] 1.2 {ratio} 0.9-2.4 [facility] Serum or plasma calcium werner urement (mass/volume)Ordered By: Su Shaw on 03-31-2023 Calcium [Mass/Vol] 9.4 mg/dL 8.5-10.1 [facility] Serum or plasma cholesterol in HDL measurement (mass/volume)Ordered By: Su Shaw on 03-31-2023 Cholesterol in HDL [Mass/Vol] 74 mg/dL >40 [facility] Comment on above: The drugs N-Acetylcy steine and Metamizole may falsely depress this assay. Reference Range HDL <40 mg/dL Low HDL Cholesterol HDL >or= 60 mg/dL High HDL Cholesterol Serum or plasma cholesterol in VLDL measurement (mass/volume)Ordered By: Su Shaw on 03-31-2023 Cholesterol in VLDL [Mass/Vol] 25 mg/dL 5-40 [facility] Serum or plasma creatinine m easurement (mass/volume)Ordered By: Su Shaw on 03-31-2023 Creatinine [Mass/Vol] 0.75 mg/dL 0.55-1.02 [facility] Comment on above: The validity of the calculated GFR & GFRAA in patients over 70 years has not been determined. Clinical correlation is essential. Serum or plasma low density lipoprotein (LDL) cholesterol measurement (mass/volume)Ordered By: Su Shaw on 03-31-2023 Cholesterol in LDL [Mass/Vol] 124 mg/dL 0-130 [facility] Serum or plasma urea nitroge n measurement (mass/volume)Ordered By: Su Shaw on 03-31-2023 Urea nitrogen [Mass/Vol] 13 mg/dL 7-18 [facility] Thin prep Papanicolaou smear with manual screeningOrdered By: Su Shaw on 03-31-2023 Thin prep Papanicolaou smear with manual screening 27 U/L 15-37 [facility] Thin prep Papanicolaou smear with manual screening 2 5-15 [facility] Vital Signs Date Time Vital Sign Value Performing Clinician Faci charliy 10-17-2024 10:42-0400 Body height 151.[address] Su Shaw MD Work Phone: [facility] 10-17-2024 10:42-0400 Body mass index (BMI) [Ratio] 29.5 kg/m2 Dr. Su Shaw MD Work Phone: [facility] 10-17-2024 10:42-0400 Body weight 67.[address] Su Shaw MD Work Phone: [facility] 10-17-2024 10:42-0400 Diastolic blood pressure 75 mm[Hg] Dr. Su Shaw MD Work Phone: [facility] 10-17-2024 10:42-0400 Heart rate 80 /min Dr. Su Shaw MD Work Phone: [facility] 10-17-2024 10:42-0400 Respiratory rate 16 /min Dr. Su Shaw MD Work Phone: [facility] 10-17-2024 10:42-0400 SaO2% (BldA) [Mass fraction] 98 % Dr. Su Shaw MD Work Phone: [facility] 10-17-2024 10:42-0400 Systolic blood pressure 115 mm[Hg] Dr. Su Shaw MD Work Phone: [facility] 09-20-2024 13:33-0400 Body height 151.[address] Su Shaw MD Work Phone: [facility] 09-20-2024 13:33-0400 Body mass index (BMI) [Ratio] 29.9 kg/m2 Dr. Su Shaw MD Work Phone: [facility] 09-20-2024 13:33-0400 Body temperature 98.3 [degF] Dr. Su Shaw MD Work Phone: [facility] 09-20-2024 13:33-0400 Body weight 68.[address] Su Shaw MD Work Phone: [facility] 09-20-2024 13:33-0400 Diastolic blood pressure 58 mm[Hg] Dr. Su Shaw MD Work Phone: [facility] 09-20-2024 13:33-0400 Heart rate 75 /min Dr. Su Shaw MD Work Phone: [facility] 09-20-2024 13:33-0400 Respiratory rate 16 /min Dr. Su Shaw MD Work Phone: [facility] 09-20-2024 13:33-0400 SaO2% (BldA) [Mass fraction] 100 % Dr. Su Shaw MD Work Phone: [facility] 09-20-2024 13:33-0400 Systolic blood pressure 108 mm[Hg] Dr. Su Shaw MD Work Phone: [facility] 03-31-2023 14:02-0400 Body height 151.[address] Su Shaw Work Phone: [facility] 03-31-2023 14:02-0400 Body mass index (BMI) [Ratio] 28.3 kg/m2 Dr. Su Shaw Work Phone: [facility] 03-31-2023 14:02-0400 Body temperature 98.2 [degF] Dr. Su Shaw Work Phone: [facility] 03-31-2023 14:02-0400 Body weight 64.[address] Su Shaw Work Phone: [facility] 03-31-2023 14:02-0400 Diastolic blood pressure 80 mm[Hg] Dr. Su Shaw Work Phone: [facility] 03-31-2023 14:02-0400 Heart rate 87 /min Dr. Su Shaw Work Phone: [facility] 03-31-2023 14:02-0400 Respiratory rate 16 /min Dr. Su Shaw Work Phone: [facility] 03-31-2023 14:02-0400 SaO2% (BldA) [Mass fraction] 99 % Dr. Su Shaw Work Phone: [facility] 03-31-2023 14:02-0400 Systolic blood pressure 110 mm[Hg] Dr. Su Shaw Work Phone: [facility] Encounters Encounter Date Encounter Type Care Provider Facility Start: 11-07-2024 ambulatory Delilah Arana ty:[facility] Start: 10-17-2024 End: 10-17-2024 Patient encounter procedure Delilah GRAHAM -[facility] Work Phone: Start: 10-17-2024 End: 10-17-[address] Su Shaw MD Work Phone: [facility] Work Phone: Start: 10-17-2024 End: 10-17-2024 ambulatory Su Shaw Facility:[facility] Start: 10-01-2024 End: 10-01-[address] Su Shaw MD Work Phone: [facility] Work Phone: Start: 10-01-2024 End: 10-01-[address] Su Shaw MD -Ultrasound, [facility] Work Phone: Start: 10-01-2024 End: 10-01-2024 ambulatory Su Shaw Facility:[facility] Start: 09-20-2024 End: 09-20-[address] Su Shaw MD -Laboratory, [facility] Start: 09-20-2024 End: 09-20-[address] Su Shaw MD -[facility] Work Phone: Start: 09-20-2024 End: 09-20-2024 ambulatory Su Shaw [place] [place] Start: 09-20-2024 End: 09-20-2024 ambulatory Su Shaw Facility:[facility] Start: 03-31-2023 End: 03-31-[address] Su Shaw Work Phone: [facility] Work Phone: Start: 03-31-2023 End: 03-31-[address] Su Shaw Work Phone: [facility] Work Phone: Procedures Date Procedure Procedure Detail Performing Clinician Start: 10-17-[address] Se Shaw MD Work Phone: Comment on above: The atypical pANCA p attern has been observed in asignificant percentage of patients with ulcerative colitis,primary sclerosing cholangitis and autoimmune hepatitis. Start: 10-17-2024 Antibody to centrome re measurement Dr. Su Shaw MD Work Phone: Comment on above: Previous reported re sult: TNP AIEdited by: INFCE on 10/18/24:1308 AMENDED REPORT 10/18/24 1308 ANTI-CENT B previously reported as: Test not performed Start: 10-17-2024 Antibody to extracta ble nuclear antigen measurement Dr. Su Shaw MD Work Phone: Comment on above: Previous reported re sult: TNP AIEdited by: INFCE on 10/18/24:1308 AMENDED REPORT 10/18/24 1308 CROCKETT Ab previously reported as: Test not performed Start: 10-17-2024 Antibody to JEFFRY-[address] Su Shaw MD Work Phone: Comment on above: Previous reported re sult: TNP AIEdited by: INFCE on 10/18/24:1308 AMENDED REPORT 10/18/24 1308 ANTI-JEFFRY previously reported as: Test not performed Start: 10-17-2024 Antibody to lupus La protein measurement Dr. Su Shaw MD Work Phone: Start: 10-17-2024 Antibody to SS-A measurement Dr. Su Shaw MD Work Phone: Start: 10-17-[address] Su Shaw MD Work Phone: Comment on above: Previous reported re sult: TNP AIEdited by: INFCE on 10/18/24:1308 AMENDED REPORT 10/18/24 1305 ANTICHROMATIN previously reported as: Test not performed Start: 10-17-[address] Su Shaw MD Work Phone: Start: 10-17-2024 Hepatitis A virus an tibody, total measurement Dr. Su Shaw MD Work Phone: Comment on above: Comment: The HAV tot al antibody assay detects both IgG andIgM but does not differentiate between them. A negativeresult suggests susceptibility to infection. A positiveresult could be due to vaccination, previously resolvedinfection or active infection. Testing for HAV IgM shouldbe performed if active HAV infection is suspected. [facility] profiles that will automatically reflex positive HAVtotal antibody results to IgM (e.g., panel #[id number] HAVAntibody w/ Rfx).Performed at: [address] [id number] Director: Elton Steward PhD, Phone: [phone] Start: 10-17-2024 [employer] PROFESSOR antibody measurement Dr. Su Shaw MD Work Phone: Comment on above: Previous reported re sult: TNP AIEdited by: [place] on 10/18/24:1308 AMENDED REPORT 10/18/24 1308 [employer] PROFESSOR Ab previously reported as: Test not performed Start: 10-17-2024 Total iron binding c apacity measurement Dr. Su Shaw MD Work Phone: Start: 10-01-2024 Hepatitis A virus an tibody, IgM type Dr. Su Shaw MD Work Phone: Comment on above: A negative anti-HAV IgM result suggests no recent orcurrent HAV infection. Start: 10-01-2024 Hepatitis B core ant ibody measurement, IgM type Dr. Su Shaw MD Work Phone: Start: 10-01-2024 Hepatitis C antibody measurement Dr. Su Shaw MD Work Phone: Start: 10-01-[address] Su Shaw MD Work Phone: Start: 09-20-2024 Vitamin D, 25-hydrox y measurement Dr. Su Shaw MD Work Phone: Comment on above: Vitamin D StatusDefi ciency: <20 ng/mL (50nmol/L)Insufficiency: 20-30 ng/mL (50-75 nmol/L)Sufficiency: 30-100 ng/mL (75-250 nmol/L)Toxicity: >100 ng/mL (>250 nmol/L) Screening for malign ant neoplasm of cervix Z12.4 - Encounter for screening for malignant neoplasm of cervix Dr. Su Shaw MD Work Phone: Plan of Treatment Date Care Activity Detail Author Start: 09-20-2024 Patient referral [facility] Work Phone: Alpha 1 antitrypsin [Mass/volume] in Serum or Plasma [facility] Ceruloplasmin [Mass/ volume] in Serum or Plasma [facility] Ferritin [Mass/volum e] in Serum or Plasma [facility] Gamma glutamyl trans ferase measurement [facility] Hepatic function panel [facility] Hepatitis A virus Ab [Presence] in Serum [facility] Hepatitis B virus pariknson rface Ab [Presence] in Serum [facility] IgA [Mass/volume] in Serum or Plasma [facility] Iron and Iron bindin g capacity panel - Serum or Plasma [facility] Patient referral [facility] Work Phone: Smooth muscle Ab [Pr esence] in Serum [facility] Tissue transglutamin ase IgA Ab [Units/volume] in Serum [facility] Ultrasound elastography [facility] Immunizations Immunization Date Immunization Notes Care Provider Fa [facility] 03-31-2023 influenza, injectabl e, quadrivalent, preservative free Dr. Su Shaw Work Phone: [facility] Payers Date Payer Category Payer Self-pay 2024 Unknown [id number] Unknown [id number] 2.16.8 [id number] Unknown [id number] 2.16.8 [id number] Unknown [id number] 2.16.8 [id number] Unknown [id number] 2.16.8 [id number] Unknown [id number] 2.16.8 [id number] Unknown [id number] 2.16.8 [id number] Social History Date Type Detail Facility Start: 03-31-2023 Tobacco smoking stat us [facility] Unknown if ever smoked [facility] Start: 1990 Sex Assigned At Female [facility] Start: 09-20-2024 End: 10-17-2024 Tobacco smoking status NHIS Ex-smoker (finding) [facility] Radiology Diagnostic study note 10-02-2024 Note Date & Type Note Facility 10-02-2024 Radiology Diagnostic study note [facility] Imaging Services [address] [place] [address] [id number] Liver MR#: [id number] Acct: [id number] Name: ADAM DUNN Rep #: [id number] : 1990 F 34 From: Adriana Cummins MD PCP: Dr. Su Shaw MD Status: REG CLI Study:Liver Date of Exam: 10/01/24 Exam# [id number] Ordering Dr: Su Shaw MD PROCEDURE: LIVER ULTRASOUND 10/01/2024 REASON FOR EXAM: ELEVATED LIVER ENZYMES COMPARISON: None FINDINGS: Liver: Grossly normal size and echotexture, measuring 13.9 cm longitudinally. Gallbladder: No stones, sludge, wall thickening or tenderness. Common bile duct: Normal measuring 5 mm. Pancreas: Visualized portions are sonographically unremarkable. Right kidney: Unremarkable measuring 10.6 x 4.0 x 5.3 cm. No hydronephrosis or shadowing stone. US/Liver IMPRESSION: UNREMARKABLE RIGHT UPPER QUADRANT ULTRASOUND. Reading Location: [id number] CC: Dr. Su Shaw MD ~ Psychotherapist: Signed [facility] Evaluation note 09-20-2024 Note Date & Type Note Facility 09-20-2024 Evaluation note Diagnosis Onset Date Resolution Elevated liver enzymes acute Ap ril 2024 1:21pm Difficulty concentrating noneactive September 20, 2024 1:21pm Screening for malignant neoplasm of cervix noneactive September 20 025 1:21pm Mixed hyperlipidemia noneactive Apri [facility] 2024 1:21pm Anxiety and depression noneactive Ap ril 2024 1:21pm [facility] Work Phone: Evaluation note 09-20-2024 Note Date & Type Note Facility 09-20-2024 Evaluation note Diagnosis Onset Date Resolution Elevated liver enzymes acute Ap ril 2024 1:21pm Difficulty concentrating noneactive September 20, 2024 1:21pm Screening for malignant neoplasm of cervix noneactive September 20 1:21pm Mixed hyperlipidemia noneactive [facility] 2024 1:21pm Anxiety and depression noneactive Ap ril 2024 1:21pm Elevated liver enzymes acute Ma y 2024 10:27am [facility] Work Phone: Chief complaint+Reason for visit Narrative Note Date & Type Note Facility Chief complaint+Reason for visit Narrative Reason for Visit Elevated liver enzym es Immunization due Screening for cardiovascular condition Establishing care with new doctor, encounter for Annual physical exam [facility] Work Phone: Evaluation note Note Date & Type Note Facility Evaluation note Diagnosis Onset Date Elevated liver enzymes acute Immunization due noneactive Screening for cardiovascular condition noneactive Establishing care with new d josé miguel, encounter for noneactive Annual physical exam noneact [place] [facility] Work Phone: Family History No Family History Records Found Relationship Condition Age at Onset Recorded Date/T azul grandfather Malignant neoplasm Unknown grandmother Diabetes mellitus Unknown father Hypertension Unknown Disorder of liver Unknown High blood cholesterol Unknown grandmother Malignant neoplasm Unknown Chief Complaint and Reason for Visit Chief Complaint Admit Date DIFFICULT CONCENTRATING September 20, 2024 1:21pm Abnormal levels of other serum enzymes M ay 2024 7:49am Reason for Visit Admit Date Elevated liver enzymes September 20, 2024 1:21pm Difficulty concentrating September 20 1:21pm Screening for malignant neoplasm of cerv ix September 20, 2024 1:21pm Mixed hyperlipidemia September 20, 2024 1: 21pm Anxiety and depression September 20, 2024 1:21pm Chief Complaint Admit Date DIFFICULT CONCENTRATING September 20, 2024 1:21pm Abnormal levels of other serum enzymes M ay 2024 7:49am LIVER ENZYMES October 17, 2024 10:27 am Reason for Visit Admit Date Elevated liver enzymes September 20, 2024 1:21pm Difficulty concentrating September 20 1:21pm Screening for malignant neoplasm of cerv ix September 20, 2024 1:21pm Mixed hyperlipidemia September 20, 2024 1: 21pm Anxiety and depression September 20, 2024 1:21pm Elevated liver enzymes October 17, 2024 10 :27am Summary Purpose Advance Directives No Advanced Directives Records Found Additional Source Comments Care Teams (unrecognized sec tion and content) Team Status: Active Member Role Status Dates Dr. Su Shaw MD Primary Care Provider Active Team Status: Inactive Member Role Status Dates Dr. Su Shaw MD Attending Provider Active Team Status: Inactive Member Role Status Dates Dr. Su Shaw MD Primary Care Provider, Attendi ng Provider Active Team Status: Inactive Member Role Status Dates Dr. Su Shaw MD Primary Care Provider Active Start: September 20, 2024 End: September 20, 2024 Dr. Su Shaw MD Attending Provider Active Start: September 20, 2024 End: September 20, 2024 Dr. Su Shaw MD Referring Provider Active Start: September 20, 2024 End: September 20, 2024 Team Status: Inactive Member Role Status Dates Dr. Su Shaw MD Primary Care Provider Active Start: October 01, 2024 End: October 01, 2024 Dr. Su Shaw MD Attending Provider Active Start: October 01, 2024 End: October 01, 2024 Dr. Su Shaw MD Referring Provider Active Start: October 01, 2024 End: October 01, 2024 Team Status: Inactive Member Role Status Dates Dr. Su Shaw MD Primary Care Provider Active Start: October 17, 2024 End: October 17, 2024 Dr. Su Shaw MD Referring Provider Active Start: October 17, 2024 End: October 17, 2024 GLADYS Gagnon Attending Provider Active Start: October 17, 2024 End: October 17, 2024 Team Status: Inactive Member Role Status Dates Dr. Su Shaw MD Primary Care Provider Active Start: October 17, 2024 End: October 17, 2024 Dr. Louie Adorno DO Attending Provider Active Start: October 17, 2024 End: October 17, 2024 Dr. Louie Adorno DO Referring Provider Active Start: October 17, 2024 End: October 17, 2024 Goals (unrecognized section and content) Goals may be documented in a n alternate sectionGoals may be documented in an alternate sectionGoals may be documented in an alternate sectionGoals may be documented in an alternate section INFORMATION SOURCE (unrecogn ized section and content) DATE CREATED AUTHOR 11/04/2024 [facility] FOR RECORDS PERTAINING TO PATIENTS WHO ARE OR HAVE BEEN ENROLLED IN A CHEMICAL DEPENDENCY/SUBSTANCEABUSE PROGRAM, SOME INFORMATION MAY BE OMITTED. This clinical summary was aggregated from multiple sources. Caution should be exercised in using it in the provision of clinical care. This summary normalizes information from multiple sources, and as a consequence, information in this document may materially change the coding, format and clinical context of patient data. In addition, data may be omitted in some cases. CLINICAL DECISIONS SHOULD BE BASED ON THE PRIMARY CLINICAL RECORDS. [facility] [employer] [facility]. provides no warranty or guarantee of the accuracy or completeness of information in this document.
--- NOTE | 2024-11-07 07:28 | US_ITS ---
PROCEDURE: ELASTOGRAPHY PARENCHYMA/ORGAN 11/07/2024 REASON FOR EXAM: ELEVATED LIVER ENZYMES TECHNIQUE: Elastography evaluation of the liver was performed. COMPARISON: Prior ultrasound of the liver dated October 01, 2024. FINDINGS: KPA: 8.8. Median velocity: 1.71 m/sec. Metavir score: F2/F3 US/Elastography Parenchyma/Organ IMPRESSION: Metavir score: F2/F3 Reading Location: [place] [id number]
== END | disposition home or self-care (01) ==
PROVIDERS: PCP Internal Medicine; Referring Provider Nurse Practitioner Acute Care; Visit Provider Nurse Practitioner Acute Care
DX: R74.8 Abnormal levels of other serum enzymes (principal)
CPT/HCPCS: 76981

== ENCOUNTER → 2025-01-16 | Outpatient (CLI) | payer BC, SELFPAY ==
[2025-01-16 09:35] LABS: AST(SGOT) 41 U/L (<=31); Alanine Aminotransfer ALT/SGPT 125 U/L (<=34); Albumin, Serum 4.6 g/dL (3.5-5.0); Alkaline Phosphatase 124 U/L (35-104); Bilirubin, Direct 0.12 mg/dL (0.00-0.30); Globulin 2.7 g/dL (2.2-4.2)
== END | disposition home or self-care (01) ==
LOC: LAB 08:36
PROVIDERS: PCP Internal Medicine; Referring Provider Nurse Practitioner Acute Care; Visit Provider Nurse Practitioner Acute Care
DX: A04.8 Other specified bacterial intestinal infections (principal); R74.8 Abnormal levels of other serum enzymes
CPT/HCPCS: 36415; 80076

== ENCOUNTER → 2025-02-01 | Outpatient (CLI) | payer BC, SELFPAY ==
[2025-02-01 13:24] LABS: HIV Nonreactive (Nonreactive); Hepatitis B Surface Antigen Nonreactive (Nonreactive); Syphilis Antibodies Nonreactive (Nonreactive)
[2025-02-02 17:08] LABS: HCV Quant. RNA PCR HCV Not Detected IU/mL (.)
[2025-02-03 05:07] LABS: Chlamydia By Nucleic Acid AMP Negative (Negative); Gonococcus By Nucleic Acid AMP Negative (Negative)
[2025-02-04 00:07] LABS: HPV APTIMA, High Risk Negative (Negative)
== END | disposition home or self-care (01) ==
PROVIDERS: PCP Internal Medicine; Visit Provider Nurse Practitioner Women's Health
DX: Z20.2 Contact with and (suspected) exposure to infections with a predominantly sexual mode of transmission (principal); Z12.4 Encounter for screening for malignant neoplasm of cervix; N89.8 Other specified noninflammatory disorders of vagina
CPT/HCPCS: 36415; 86695; 86696; 86703; 86780; 87070; 87205; 87340; 87491; 87522; 87591; 87624; 88175; G0145

== ENCOUNTER → 2025-03-20 | Outpatient (CLI) | payer BC, SELFPAY ==
[2025-03-20 10:15] LABS: AST(SGOT) 32 U/L (<=31); Alanine Aminotransfer ALT/SGPT 47 U/L (<=34); Albumin, Serum 4.8 g/dL (3.5-5.0); Alkaline Phosphatase 71 U/L (35-104); Bilirubin, Direct 0.09 mg/dL (0.00-0.30); Globulin 2.9 g/dL (2.2-4.2)
== END | disposition home or self-care (01) ==
PROVIDERS: PCP Internal Medicine; Referring Provider Nurse Practitioner Acute Care; Visit Provider Nurse Practitioner Acute Care
DX: R74.8 Abnormal levels of other serum enzymes (principal); K76.0 Fatty (change of) liver, not elsewhere classified
CPT/HCPCS: 36415; 80076